=== PATIENT | male | born 1975 | race Caucasian/White ===

== ENCOUNTER 2019-08-11 22:50 | Inpatient (IN) ==
[2019-08-11] MEDS ORDERED: CARAFATE LIQUID PO ONE (23:15)
[2019-08-11 23:43] LABS: BASO# 0.05 X1000 (0.0-0.2); BASO% 0.5 % (0.0-0.8); HEMATOCRIT 41.1 % (42.0-52.0); HEMOGLOBIN 13.8 g/dL (14.0-18.0); IMM GRAN# 0.02 X1000 (0.0-0.04); IMM GRAN% 0.2 % (0.0-0.5); LYMPH# 3.21 X1000 (1.2-3.4); LYMPH% 32.7 % (20.5-51.1); MCH 28.8 PG (27-31); MCHC 33.6 g/dL (33-37); MCV 85.8 FL (81-99); MONO# 0.72 X1000 (0.11-0.59); MONO% 7.3 % (1.7-9.3); MPV 9.7 FL (7.4-10.4); NEUT# 5.63 X1000 (1.4-6.5); NEUT% 57.3 % (42.2-75.2); PLT 193 X1000 (130-400); RBC 4.79 XMIL (4.7-6.1); RDW 13.3 % (11.5-14.5); WBC 9.83 X1000 (4.8-10.8)
[2019-08-12 00:01] LABS: AGAP 11; ALBUMIN 4.5 g/dL (3.5-5.0); ALKALINE PHOSPHATASE 76 U/L (32-122); BUN 13 mg/dL (8-22); CALCIUM 9.6 mg/dL (8.8-10.2); CHLORIDE 103 mmol/L (98-107); COSMO 277; ESTIMATED GFR > 60; GLUCOSE 116 mg/dL (70-104); GOT 14 U/L (10-34); GPT 14 U/L (10-44); LIPASE 164 U/L (13-60); POTASSIUM 3.9 mmol/L (3.5-5.1); SODIUM 138 mmol/L (136-145); TCO2 24 mmol/L (25-35); TOTAL PROTEIN 7.3 g/dL (6.3-8.3)
[2019-08-12] MEDS ORDERED: G.I. COCKTAIL PO ONE (00:20)
[2019-08-12] MEDS ORDERED: NS 1,000 ML IV ONE ×2 (00:20→02:27)
[2019-08-12] MEDS ORDERED: ZOFRAN IV ONE ×2 (00:20→01:13)
[2019-08-12 00:40] LABS: OCCULT BLOOD 1 NEGATIVE (NEGATIVE)
[2019-08-12 00:52] LABS: BILIRUBIN URINE NEGATIVE (NEGATIVE); BLOOD URINE 1+ (NEGATIVE); CLARITY CLEAR (CLEAR); COLOR YELLOW; GLUCOSE URINE NEGATIVE (NEGATIVE); KETONE URINE NEGATIVE (NEGATIVE); LEUKOCYTES URINE NEGATIVE (NEGATIVE); NITRITE URINE NEGATIVE (NEGATIVE); PROTEIN URINE NEGATIVE (NEGATIVE); URINE SOURCE CLEAN CATCH; UROBILINOGEN URINE NORMAL
[2019-08-12 00:54] LABS: URINE BACTERIA 1+ /HFP; URINE EPITHELIAL CELLS <10 /HPF (<10); URINE RBC <10 /HPF (<10); URINE WBC <10 /HPF (<10)
[2019-08-12 00:59] LABS: UR AMPHETAMINES QUAL NONE DETECTED (NONE DETECT); UR BARBITUATES QUAL NONE DETECTED (NONE DETECT); UR BENZODIAZEPIN QUAL NONE DETECTED (NONE DETECT); UR CANNABINOIDS QUAL PRESUMPTIVE POSITIVE (NONE DETECT); UR COCAINE QUAL NONE DETECTED (NONE DETECT); UR METHADONE QUAL NONE DETECTED (NONE DETECT); UR METHAMPHETAMINE QUAL NONE DETECTED (NONE DETECT); UR OPIATES QUAL NONE DETECTED (NONE DETECT); UR OXYCODONE QUAL NONE DETECTED (NONE DETECT); UR PCP QUAL NONE DETECTED (NONE DETECT); UR PROPOXYPHENE QUAL NONE DETECTED (NONE DETECT); UR TCA QUAL NONE DETECTED (NONE DETECT)
[2019-08-12] MEDS ORDERED: DILAUDID IV ONE (01:13)
--- NOTE | 2019-08-12 02:20 | PROVIDER DOCUMENTATION ---
This chart was entered by Bharti Mejia Scribe, acting as scribe for Truong Carbajal MD. HPI-Abdominal Pain/GI Problem - General Chief Complaint: Abdominal Pain Stated Complaint: RETURN/RETREAT Time Seen by Provider: 08/11/19 23:14 Source: patient, family Allergies/Adverse Reactions: Patient Allergies Allergy/AdvReac Type Severity Reaction Status Date / Time Penicillins Allergy RASH Verified 08/11/19 22:59 Home Medications: Home Medication List Medication Instructions Recorded Confirmed Last Taken Type Famotidine [Pepcid] 20 mg PO BID #60 tab 08/10/19 08/11/19 Unknown Rx Pantoprazole [Protonix] 40 mg PO DAILY@0700 #30 tab 08/10/19 08/11/19 Unknown Rx - History of Present Illness-ABD Nature of Presenting Problems: Pt is 43/M presenting to ED w/ ABD pain that is primarily R sided and has been present for the last 3 weeks. Pt has been to the ED several times here as well as [facility]. He was dx w/ ulcers. Pt sts that he is not getting any better and that he is now n/v. Pt has appt w/ GI on 08/19, but is having a hard time waiting. Abdominal Pain Onset Location: reports: RUQ, epigastric Pain Radiation: reports: no radiation Quality of Pain: reports: aching Severity in ED: reports: moderate Onset/Duration: reports: other (3 weeks) Timing: reports: getting worse Activities at Onset: reports: none Exposure to sick contacts?: No Modifying Factors: improves with: nothing Associated Symptoms: reports: constipation (pt sts that he usually has more BM, did go yesterday, but it has not been normal.), nausea, vomiting Last BM: last night Dark Stools Present?: reports: none noticed Rectal Bleeding: reports: none Rectal Pain: reports: none Bruising or Bleeding Gums?: No Similar Symptoms Previously?: No Recently seen or treated by another doctor?: No Review of Systems - Adult - REVIEW OF SYSTEMS - ADULT Constitutional: reports: no symptoms reported Eyes: reports: no symptoms reported Ears, Nose, Mouth & Throat: reports: no symptoms reported Cardiovascular: denies: no symptoms reported, chest pain Respiratory: reports: no symptoms reported. denies: cough, shortness of breath, wheezing Gastrointestinal: reports: abdominal pain, constipation, nausea, vomiting. denies: diarrhea Genitourinary: reports: no symptoms reported Musculoskeletal: reports: no symptoms reported. denies: back pain Integumentary: reports: no symptoms reported Neurological: reports: no symptoms reported. denies: dizziness/vertigo, headache/migraines Psychiatric: reports: no symptoms reported Endocrine: reports: no symptoms reported Hematologic/Lymphatic: reports: no symptoms reported Allergic/Immunologic: reports: no symptoms reported All Other Systems: Reviewed and Negative Past History - Adult - PAST MEDICAL HISTORY-ADULT Review of Records: reports: Old Records Reviewed, Nursing Assessment Review, Medications Reviewed, Social history reviewed & non-contributory. Major Childhood Illnesses: reports: denies history Cardiovascular: reports: HTN Respiratory: reports: denies history Gastrointestinal: reports: GERD Obstetrical/Gynecological: reports: denies history Genitourinary: reports: denies history Musculoskeletal: reports: denies history Neurological: reports: denies history Endocrine/Immune: reports: denies history Other Conditions: reports: denies history - PRIOR SURGERIES/PROCEDURES Surgical/Procedure History: reports: none - IMMUNIZATION STATUS Childhood Immunizations: See Nurse Assessment Flu Vaccine: See Nurse Assessment - FAMILY HISTORY Family History: CAD under 55yo - SOCIAL HISTORY Smoking: cigarettes, greater than 1 pack/day Provider spent 3-5 mins advising pt. on dangers of tobacco.: Discussed manners to quit use, and f/u contacts for add'l counseling. Substance Use: none/never Alcohol Use Frequency: never Living Situation: family Physical Exam-General - PHYSICAL EXAM-ADULT Initial Vital Signs Reviewed: Yes - CONSTITUTIONAL General Appearance: appears well, alert, moderate distress - EYES Eyes: PERRL/EOMI, pink conjunctivae - HEAD, EARS, NOSE, MOUTH & THROAT HENMT: moist mucous membranes - NECK Neck: non-tender, full range of motion, supple, normal inspection - RESPIRATORY Respiratory: lungs clear - CARDIOVASCULAR Cardiovascular: bradycardia (59) - GASTROINTESTINAL (ABDOMEN) Abdominal Exam: soft, tenderness (RUQ and epigastric tenderness w/ palpation) - MUSCULOSKELETAL Back Exam: normal inspection Extremity: normal range of motion, non-tender, normal gait, normal inspection - SKIN Integumentary: normal color, warm/dry - NEUROLOGIC Neurologic: grossly normal - PSYCHIATRIC Psych/Mental Status: normal mood/affect, normal thought content, normal thought process, oriented x 3 Progress - PLAN OF CARE/RESULTS Progress/Plan/Lab Results: Vital Signs - 8 hr 08/11/19 22:55 Temperature 97.4 F L Pulse Rate 59 L Respiratory Rate 20 Blood Pressure 154/98 O2 Sat by Pulse Oximetry 100 Laboratory Results - last 24 hr 08/11/19 23:26 WBC 9.83 RBC 4.79 Hgb 13.8 L Hct 41.1 L MCV 85.8 MCH 28.8 MCHC 33.6 RDW Std Deviation 13.3 Plt Count 193 MPV 9.7 Immature Gran % (Auto) 0.2 Neut % (Auto) 57.3 Lymph % (Auto) 32.7 [place] % (Auto) 7.3 Eos % (Auto) 2.0 Baso % (Auto) 0.5 Immature Gran # (Auto) 0.02 Neut # (Auto) 5.63 Lymph # (Auto) 3.21 [place] # (Auto) 0.72 H Eos # (Auto) 0.20 Baso # (Auto) 0.05 Orders Category Date Time Status AMYLASE [CHEM] Stat Lab 08/11/19 23:26 Received CBC WITH ELECTRONIC DIFF [HEME] Stat Lab 08/11/19 23:26 Completed COMPREHENSIVE METABOLIC PANEL [CHEM] Stat Lab 08/11/19 23:26 Received LIPASE [CHEM] Stat Lab 08/11/19 23:26 Received OCCULT BLOOD SCREEN STOOL PL Stat Lab 08/11/19 23:[address] W/POSS RFLX CULT [URINALYSIS] Stat Lab 08/11/19 23:14 Uncollected Sucralfate [Carafate Liquid] Med 08/11/19 23:15 Discontinued 1 gm PO NOW ONE Result Diagrams: 08/11/19 23:26 08/11/19 23:26 - CONSULTS/PCP/HOSPITALIST Notification #1 *Consult/PCP/Hospitalist*: Dr Bahena Time Discussed: 02:01 Consult Disposition: Admit Departure - Departure Date of Disposition Decision: 08/12/19 Time of Disposition Decision: 02:19 DIAGNOSIS: Nausea & vomiting, Elevated lipase, Abdominal pain, Substance abuse Disposition: ADMITTED INPATIENT 09 Certified Medical Emergency: Emergent Condition: Fair Referrals and Follow-Ups: None,PCP [Primary Care Provider] - - Critical Care Note This patient required my direct & personal management of CC.: No Attestation - Physician/ SAM Attestation Patient care was provided by Advanced Practice Provider:: No The physician spent face to face time with patient:: Yes Advanced Practice Provider documentation review:: Supervising physician onsite and consulted in the evaluation and care of this patient. The physician did have a face to face encounter with the patient. This chart was documented by the indicated scribe, (Bharti Mejia, Scribe) and accurately reflects the services I performed and decisions made by me, Truong Carbajal MD, as attested by the provider's signature.
[2019-08-12] MEDS: DEMEROL IV PRN ×5 (04:12→19:13)
[2019-08-12] MEDS ORDERED: DEMEROL IV PRN (05:00)
--- NOTE | 2019-08-12 09:01 | Diag Imaging Result Doc PS360 ---
US GB < RUQ (LIMITED) - 08/12/2019 INDICATION: RUQ abdo pain TECHNIQUE: Lacy scale, color Doppler, and duplex evaluation of the abdomen was performed. Standard protocol. COMPARISON: None FINDINGS: The liver appears hyperechoic suggesting diffuse fatty liver infiltration. No focal masses are appreciated. The IVC and aorta appear normal. The pancreas is unremarkable. The gallbladder is free of stones and sludge has a normal caliber wall. The common bile duct measures 4 mm. The portal vein is patent with hepatopetal flow. The right kidney appears normal. There is no hydronephrosis. IMPRESSION: Diffuse fatty liver infiltration. Otherwise normal abdominal ultrasound. Electronically signed by Debbie Tavares 08/12/2019 8:59 AM
[2019-08-12 09:33] LABS: BASO# 0.04 X1000 (0.0-0.2); BASO% 0.5 % (0.0-0.8); EOS# 0.17 X1000 (0.0-0.7); EOS% 1.9 % (0.0-10.0); HEMATOCRIT 42.3 % (42.0-52.0); HEMOGLOBIN 14.1 g/dL (14.0-18.0); IMM GRAN# 0.02 X1000 (0.0-0.04); IMM GRAN% 0.2 % (0.0-0.5); LYMPH# 3.09 X1000 (1.2-3.4); LYMPH% 35.1 % (20.5-51.1); MCH 28.9 PG (27-31); MCHC 33.3 g/dL (33-37); MCV 86.7 FL (81-99); MONO# 0.67 X1000 (0.11-0.59); MONO% 7.6 % (1.7-9.3); MPV 9.8 FL (7.4-10.4); NEUT# 4.81 X1000 (1.4-6.5); NEUT% 54.7 % (42.2-75.2); PLT 200 X1000 (130-400); RBC 4.88 XMIL (4.7-6.1); RDW 13.4 % (11.5-14.5)
[2019-08-12 09:59] LABS: AGAP 9; ALBUMIN 4.6 g/dL (3.5-5.0); ALKALINE PHOSPHATASE 84 U/L (32-122); AMYLASE 106 U/L (20-200); BUN 9 mg/dL (8-22); CALCIUM 9.7 mg/dL (8.8-10.2); CHLORIDE 108 mmol/L (98-107); COSMO 281; ESTIMATED GFR > 60; GLUCOSE 92 mg/dL (70-104); GOT 13 U/L (10-34); GPT 14 U/L (10-44); LIPASE 114 U/L (13-60); POTASSIUM 4.2 mmol/L (3.5-5.1); SODIUM 142 mmol/L (136-145); TCO2 25 mmol/L (25-35); TOTAL PROTEIN 7.5 g/dL (6.3-8.3)
[2019-08-12] MEDS: PROTONIX IV SCH ×3 (11:25→23:03)
[2019-08-12] MEDS: SODIUM CHLORIDE 0.9% INJ SCH (11:25)
[2019-08-12] MEDS ORDERED: DULCOLAX PR ONE (14:09)
[2019-08-12] MEDS: CARAFATE LIQUID PO SCH ×2 (14:16→20:43)
--- NOTE | 2019-08-12 15:47 | HISTORY AND PHYSICAL ---
CHIEF COMPLAINT: Abdominal pain, nausea and vomiting. HISTORY OF PRESENT ILLNESS: Mr. Bradly Adamson is a 43-year-old male with a medical history of GERD that he takes Zantac for at home. He reports that over the last 2 and half weeks, he had one black tarry stool. Otherwise, he has had issues with constipation, becoming very nauseous with vomiting yellow emesis. He states that he took a dose of Metamucil last week, and had a very normal large bowel movement and felt much better, but then started developing bloatedness again. Originally, pain was left lower quadrant and then radiated to the right, and then right upper quadrant. During evaluation, right upper quadrant abdominal pain was initiated with palpation. Imaging reviewed. It does show that the CT and the ultrasound shows a contracted gallbladder. He also has fatty liver, but otherwise no acute findings. He is going to go for an MRI of the abdomen. It is possible that he could have gastroparesis as he claims to feel like he just retains food in his upper abdomen, and complains of feeling like he has a slow digestion. Prior to the last 2-1/2 weeks, he was having normal bowel movements around 2 a day. Other symptoms is feeling like there is gassiness and bloatedness. He has been to the ER several times for these complaints with nothing found. Sometimes, the vomiting is projectile, and he is supposed to see Dr. Pimentel next week for further evaluation of his abdomen. PAST MEDICAL HISTORY: GERD. PAST SURGICAL HISTORY: Teeth extraction. SOCIAL HISTORY: to his of 25 years. They have 1 son. He is a paratransit driver. He smokes a pack per day for at least 15 years. No alcohol. Marijuana once a day. FAMILY HISTORY: Father had MS and CVA. at 56 of an [place]. Mother had skin cancer. ALLERGIES: Penicillin. HOME MEDICATIONS: 1. Zantac 150 mg as needed. 2. Pepcid 20 mg p.o. twice daily. 3. Protonix 40 mg p.o. daily. Those were just initiated a few days ago. REVIEW OF SYSTEMS: Fourteen point review of systems are complete, and all were negative for those mentioned above in HPI. PHYSICAL EXAMINATION: VITAL SIGNS: Temperature 97.2 degrees, heart rate 46, respiratory rate 18, blood pressure 154/88, and O2 saturation 100% on room air. GENERAL: The patient is a 43-year-old male. He is in no acute distress. He is able to answer questions appropriately. HEENT: Atraumatic, normocephalic. Pupils equal, round, reactive to light. Extraocular movements intact. Mucous membranes are dry. NECK: Trachea midline. CARDIOVASCULAR: S1, S2. Bradycardic rate and rhythm. No rubs, gallops, murmurs. No lower extremity edema. +2 dorsalis and radial pulses. Negative JVD or carotid bruits. PULMONARY: Clear to auscultation. Bilateral breath sounds. No accessory muscle use or work of breathing noted. GI: Soft. Tender in the right upper quadrant with abdominal palpation. Positive bowel sounds x4 but hypoactive. EXTREMITIES: Moves all extremities equally. Full range of motion. NEUROLOGIC: A and O x3. Follows commands. Sensory is intact. SKIN: Warm, dry, intact. LABORATORY DATA: White blood cells 8000, hemoglobin 14, hematocrit 42, and platelet count 200,000. Sodium 142, potassium 4.2, BUN 9, creatinine 1.0, glucose is 92, calcium 9.7, magnesium 2.0. Bilirubin 0.30, AST 13, ALT 14, amylase 106, lipase 114, lactate 1.1. Urinalysis 1+ blood, 1+ bacteria. Otherwise negative. Stool for occult blood negative. Urine drug screen positive for cannabinoids. IMAGING: Abdominal ultrasound fatty liver. ASSESSMENT AND PLAN: 1. Abdominal pain with constipation, vomiting and nausea. Antiemetics as needed. We will start with a bisacodyl suppository x1. Start him on MiraLAX twice a day. He does have somewhat of a little bit of elevation in his lipase. CT and ultrasound does not really show anything with the gallbladder or the pancreas. It does show some fatty liver. Carafate 1 g every 6 hours 2. Possible gastroparesis, way he describes it as slow. He could have a gastric emptying study at some point. 3. Reported contracted gallbladder, could be possible that his gallbladder is causing some of these symptoms though he might benefit from a HIDA scan. 4. GERD. Continue with the proton pump inhibitor. Protonix IV twice a day. 5. Suspicious that he has got just straight up constipation. Again, he is going to be given some bisacodyl and MiraLAX. 6. Tobacco abuse. Cessation discussed. 7. Deep venous thrombosis prophylaxis. SCD's. Dictated by JANICE Christopher for Jose J Madera MD Addendum: Patient seen and examined by myself. Agree with JANICE note. It reflects my assessment and plan. Patient is being admitted to hospital for recurrent abdominal pain. Will order MRI of abdomen and HIDA scan. Will provide pain medications and monitor patient closely. cc: JANICE Christopher MD [facility]
--- NOTE | 2019-08-12 17:13 | Diag Imaging Result Doc PS360 ---
EXAM: MRI ABDOMEN W/WO CONTRAST HISTORY: abdomen pain TECHNIQUE: Routine dynamic pre and post contrasted CT of abdomen with and without fat saturation techniques. COMPARISON: CT abdomen and pelvis 08/10/2019 FINDINGS: The liver appears normal in size and signal intensity. No significant signal dropout on out of phase imaging is identified to suggest diffuse hepatic steatosis. Pancreas, kidneys, and adrenal glands appear normal. Aorta is of normal caliber. No adenopathy is appreciated. There are no abnormal regions of contrast enhancement. IMPRESSION: Negative study. No abnormalities are appreciated. Electronically signed by Debbie Tavares 08/12/2019 5:11 PM
[2019-08-12] MEDS: MIRALAX PO SCH (20:48)
[2019-08-13] MEDS: CARAFATE LIQUID PO SCH ×5 (04:16→20:35)
[2019-08-13 06:05] LABS: BASO# 0.04 X1000 (0.0-0.2); BASO% 0.5 % (0.0-0.8); EOS# 0.16 X1000 (0.0-0.7); EOS% 2.1 % (0.0-10.0); HEMATOCRIT 45.6 % (42.0-52.0); HEMOGLOBIN 15.1 g/dL (14.0-18.0); IMM GRAN# 0.02 X1000 (0.0-0.04); IMM GRAN% 0.3 % (0.0-0.5); LYMPH# 2.63 X1000 (1.2-3.4); LYMPH% 34.7 % (20.5-51.1); MCH 28.5 PG (27-31); MCHC 33.1 g/dL (33-37); MONO# 0.63 X1000 (0.11-0.59); MONO% 8.3 % (1.7-9.3); NEUT% 54.1 % (42.2-75.2); PLT 201 X1000 (130-400); RDW 13.5 % (11.5-14.5); WBC 7.58 X1000 (4.8-10.8)
[2019-08-13 06:25] LABS: HEMOGLOBIN A1C 5.1 % (4.8-6.0)
[2019-08-13 06:33] LABS: AGAP 11; ALBUMIN 4.6 g/dL (3.5-5.0); ALKALINE PHOSPHATASE 92 U/L (32-122); BUN 7 mg/dL (8-22); CALCIUM 10.2 mg/dL (8.8-10.2); CHLORIDE 104 mmol/L (98-107); COSMO 277; CREATININE 1.1 mg/dL (0.7-1.2); ESTIMATED GFR > 60; GLUCOSE 96 mg/dL (70-104); GOT 13 U/L (10-34); GPT 14 U/L (10-44); POTASSIUM 4.7 mmol/L (3.5-5.1); SODIUM 140 mmol/L (136-145); TCO2 25 mmol/L (25-35); TOTAL PROTEIN 7.6 g/dL (6.3-8.3)
--- NOTE | 2019-08-13 09:57 | PROGRESS NOTE ---
DATE: 08/13/2019 SUBJECTIVE: Patient denies having any acute complaint this morning. He states that the abdominal pain has completely resolved since last night. OBJECTIVE: Vital Signs: Temperature 97.8 degrees, pulse 65 per minute, respiratory rate 18 per minute, blood pressure 142/93, pulse oximetry 100% on room air. General: Patient is alert and oriented x3. He does not appear to be in any acute distress. Cardiovascular System: First and second heart sounds are audible without any murmurs or gallops. Respiratory System: No respiratory distress noted. Bilateral lung air entry is good without any rales or rhonchi. Gastrointestinal System: Abdomen is soft and nontender. No guarding or rigidity are present. There is no tenderness or rebound tenderness. There are no viscera are palpable, and normal bowel sounds are present. Musculoskeletal System: No deformities are present. DIAGNOSTIC DATA: CBC and comprehensive metabolic panel are nondiagnostic this morning. IMPRESSION: 1. This is a 43-year-old gentleman, who was admitted to the hospital with abdominal pain, and who has history of significant acid reflux symptoms for which he was taking ranitidine, but a few weeks ago ranitidine was taken off the shelf, and because of that, he was not able to take ranitidine. Since then, he has been having significant abdominal pain. 2. Nausea, vomiting and constipation, which all have now resolved. PLAN: The patient seems to be having abdominal pain related to acid reflux, but he is already scheduled to have a HIDA scan this morning, which we will go ahead and get it done. He can probably be discharged home if HIDA scan is negative. In that case, he will need to follow up with PCP and get him scheduled for EGD as outpatient for further evaluation. cc: Daina De Oliveira MD
--- NOTE | 2019-08-13 11:09 | Diag Imaging Result Doc PS360 ---
EXAM: HIDA SCAN W/ EJECTION FRACTION HISTORY: abdominal pain, contracted gallblader TECHNIQUE: Nuclear medicine HIDA scan with gallbladder ejection fraction COMPARISON: None. FINDINGS: 4.7 mCi Choletec administered. There is normal uptake in the liver. Normal emptying into the gallbladder and small bowel. Ensure was given to determine the gallbladder ejection fraction. No appreciable emptying at 60 minutes. IMPRESSION: Abnormal exam with poor emptying from the gallbladder. Electronically signed by Maximilian Osborne 08/13/2019 11:07 AM
[2019-08-13] MEDS: MIRALAX PO SCH ×2 (11:39→20:35)
[2019-08-13] MEDS: PROTONIX IV SCH ×2 (12:11→20:34)
[2019-08-13] MEDS: SODIUM CHLORIDE 0.9% INJ SCH (12:11)
[2019-08-13] MEDS: DEMEROL IV PRN ×2 (17:59→21:23)
[2019-08-13] MEDS: NICODERM PATCH TD SCH (18:25)
[2019-08-13] MEDS: ZOFRAN ODT PO PRN (21:23)
[2019-08-14] MEDS: CARAFATE LIQUID PO SCH ×4 (01:52→22:12)
[2019-08-14] MEDS: DEMEROL IV PRN ×6 (01:52→20:26)
[2019-08-14] MEDS: PROTONIX IV SCH ×3 (01:53→22:12)
[2019-08-14] MEDS: ZOFRAN ODT PO PRN ×2 (05:46→12:41)
[2019-08-14 06:26] LABS: BASO# 0.03 X1000 (0.0-0.2); BASO% 0.3 % (0.0-0.8); EOS# 0.19 X1000 (0.0-0.7); EOS% 2.1 % (0.0-10.0); HEMATOCRIT 45.1 % (42.0-52.0); IMM GRAN# 0.02 X1000 (0.0-0.04); IMM GRAN% 0.2 % (0.0-0.5); LYMPH# 2.43 X1000 (1.2-3.4); LYMPH% 27.5 % (20.5-51.1); MCH 28.4 PG (27-31); MCHC 33.3 g/dL (33-37); MCV 85.4 FL (81-99); MONO# 0.89 X1000 (0.11-0.59); MONO% 10.1 % (1.7-9.3); MPV 10.2 FL (7.4-10.4); NEUT# 5.29 X1000 (1.4-6.5); NEUT% 59.8 % (42.2-75.2); PLT 211 X1000 (130-400); RBC 5.28 XMIL (4.7-6.1); RDW 13.3 % (11.5-14.5); WBC 8.85 X1000 (4.8-10.8)
[2019-08-14 06:53] LABS: AGAP 12; ALBUMIN 4.5 g/dL (3.5-5.0); ALKALINE PHOSPHATASE 88 U/L (32-122); BUN 12 mg/dL (8-22); CALCIUM 10.1 mg/dL (8.8-10.2); CHLORIDE 102 mmol/L (98-107); COSMO 277; ESTIMATED GFR > 60; GLUCOSE 101 mg/dL (70-104); GOT 15 U/L (10-34); GPT 15 U/L (10-44); MAGNESIUM 1.9 mg/dL (1.5-2.7); POTASSIUM 4.6 mmol/L (3.5-5.1); SODIUM 139 mmol/L (136-145); TCO2 26 mmol/L (25-35); TOTAL PROTEIN 7.8 g/dL (6.3-8.3)
[2019-08-14] MEDS: SODIUM CHLORIDE 0.9% INJ SCH (09:03)
[2019-08-14] MEDS: MIRALAX PO SCH (09:04)
[2019-08-14] MEDS: NICODERM PATCH TD SCH (09:05)
--- NOTE | 2019-08-14 13:09 | PROGRESS NOTE ---
DATE: 08/14/2019 SUBJECTIVE: The patient reports that he still is complaining of abdominal pain that gets worse when he eats. Denies any fever or chills. OBJECTIVE: Vital Signs: Temperature 97.6, heart rate 65, respiratory rate 16, blood pressure 146/102, O2 saturation 100% on room air. General Examination: This is a 43-year-old, male, lying in bed, in no acute distress. Cardiovascular Examination: S1 and S2 heard. No murmurs, gallops, or rubs. Regular rate and rhythm. Respiratory Examination: Clear bilaterally to auscultation. No work of breathing or using accessory muscles. Abdomen: Soft, nontender to palpation. Bowel sounds present. No organomegaly. No signs of peritoneal irritation. There is no tenderness or rebound noted. Extremities: No clubbing, cyanosis, or edema. Peripheral pulses present in both legs. Neurological Examination: The patient is alert and oriented x3. Moves 4 extremities. Laboratory Data: Unremarkable. ASSESSMENT: 1. Abdominal pain. 2. Gastroesophageal reflux disease. 3. Abnormal, poor emptying of gallbladder. PLAN: The patient basically came to the emergency department complaining of abdominal pain. He has had, so far, two CAT scans here in the emergency room at [facility] and in [place] and one more apparently at [facility]. We have done an MRI of the abdomen which did not show any abnormality. The patient continues to report abdominal pain. The HIDA scan returned abnormal. We have consulted general surgery to see if this patient will require any surgical approach or not. If not, I think we will transfer this patient to [facility] for a gastrointestinal evaluation tomorrow. We will continue to monitor this patient closely. cc: Jose J Madera MD
--- NOTE | 2019-08-14 18:03 | GENERAL SURGERY CONSULTATION ---
DATE: 08/14/2019 HISTORY: 43-year-old male with a several week history of recurrent and progressive abdominal pain with associated nausea and some vomiting and bloating. Symptoms are worse after eating. There are no relieving factors except time. They wax and wane in intensity but overall progressing in the severity over the last few weeks. He reports some chills but no fever. He also report some diarrhea and constipation. PAST MEDICAL HISTORY: Gastroesophageal reflux disease. PAST SURGICAL HISTORY: None. HOME MEDICATIONS: Currently none but he used to take Zantac. SOCIAL HISTORY: He smokes about 1 pack per day for several years. No alcohol. He also uses marijuana daily. He drives a truck. He is and as 1 child. FAMILY HISTORY: His mother had her gallbladder taken out. There is also history of stroke and multiple sclerosis as well as [place]. ALLERGIES: Penicillin. REVIEW OF SYSTEMS: Ten systems reviewed and negative except as noted above. PHYSICAL EXAMINATION: Vital Signs: Temperature 97.7 degrees, pulse 72, respirations 16, blood pressure 162/105, O2 saturation 100%. General: Well-developed male in no distress who looks stated age. HEENT: Normocephalic, atraumatic. Extraocular muscles intact. Pupils equal, round, reactive to light. Sclerae anicteric. Moist mucous membranes. Hearing grossly normal. No oral lesions. Neck: Supple. No thyromegaly. CV: Regular rate and rhythm. Respiratory: Bilateral breath sounds. No work of breathing. GI: Soft, nondistended. No organomegaly or mass. No hernias. He is tender in the epigastric right upper quadrant but without rebound or guarding. Extremities: No clubbing, cyanosis, or edema. Skin: Warm and dry. No rash. Musculoskeletal: Moves all extremities equally and well. LABORATORY: CBC and complete metabolic profile reviewed and unremarkable. He did have a mildly elevated lipase at 164 on admission. It then went down to 114 the next day. Urinalysis negative. Stool occult blood is negative. Urine drug screen is negative except for cannabinoids. IMAGING: Abdominal ultrasound shows diffuse fatty liver infiltration but was otherwise normal. Abdominal MRI was negative. HIDA scan showed no appreciable emptying of the gallbladder or a 0% ejection fraction after 1 hour. ASSESSMENT/PLAN: 43-year-old male with severe biliary dyskinesia. We are planning laparoscopic cholecystectomy tomorrow. I went over the risks and benefits with him including bleeding, infection, injury to surrounding organs such as the intestines or bile duct, incisional hernia, and other imponderables. He understands and agrees to proceed. cc: Kyle Courtney MD
[2019-08-14] MEDS: MORPHINE IV PRN (23:14)
[2019-08-15] MEDS: MORPHINE IV PRN ×4 (00:52→06:34)
[2019-08-15] MEDS: CARAFATE LIQUID PO SCH (01:00)
[2019-08-15] MEDS: ZOFRAN ODT PO PRN ×3 (02:59→14:45)
[2019-08-15 07:00] LABS: BASO# 0.04 X1000 (0.0-0.2); BASO% 0.5 % (0.0-0.8); EOS# 0.18 X1000 (0.0-0.7); EOS% 2.4 % (0.0-10.0); HEMATOCRIT 46.2 % (42.0-52.0); HEMOGLOBIN 15.6 g/dL (14.0-18.0); IMM GRAN# 0.02 X1000 (0.0-0.04); IMM GRAN% 0.3 % (0.0-0.5); LYMPH# 3.06 X1000 (1.2-3.4); LYMPH% 40.2 % (20.5-51.1); MCH 29.2 PG (27-31); MCHC 33.8 g/dL (33-37); MCV 86.4 FL (81-99); MONO# 0.67 X1000 (0.11-0.59); MONO% 8.8 % (1.7-9.3); MPV 10.2 FL (7.4-10.4); NEUT# 3.64 X1000 (1.4-6.5); NEUT% 47.8 % (42.2-75.2); PLT 187 X1000 (130-400); RBC 5.35 XMIL (4.7-6.1); RDW 13.4 % (11.5-14.5); WBC 7.61 X1000 (4.8-10.8)
[2019-08-15 07:30] LABS: AGAP 13; ALB/GLOB RATIO 1.4; ALBUMIN 4.6 g/dL (3.5-5.0); ALKALINE PHOSPHATASE 93 U/L (32-122); BUN 12 mg/dL (8-22); CALCIUM 8.8 mg/dL (8.8-10.2); CHLORIDE 100 mmol/L (98-107); COSMO 277; ESTIMATED GFR > 60; GLUCOSE 95 mg/dL (70-104); GOT 16 U/L (10-34); GPT 18 U/L (10-44); POTASSIUM 3.9 mmol/L (3.5-5.1); SODIUM 139 mmol/L (136-145); TCO2 26 mmol/L (25-35); TOTAL BILIRUBIN 0.46 mg/dL (0.20-1.00); TOTAL PROTEIN 7.9 g/dL (6.3-8.3)
[2019-08-15] MEDS ORDERED: SODIUM CHLORIDE 0.9% ONE (07:55)
[2019-08-15] MEDS ORDERED: SENSORCAINE-MPF 0.5%/EPI 1:200,000 ONE (07:55)
[2019-08-15] MEDS ORDERED: LR 1,000 ML ONE (07:56)
[2019-08-15] MEDS ORDERED: XYLOCAINE-MPF 2% ONE ×2 (07:59→09:33)
[2019-08-15] MEDS ORDERED: DECADRON ONE (07:59)
[2019-08-15] MEDS ORDERED: ROBINUL ONE ×2 (07:59→08:08)
[2019-08-15] MEDS ORDERED: ZOFRAN ONE (07:59)
[2019-08-15] MEDS ORDERED: FENTANYL ONE (08:00)
[2019-08-15] MEDS ORDERED: DIPRIVAN 1% ONE (08:00)
[2019-08-15] MEDS ORDERED: VERSED ONE ×2 (08:02→08:25)
[2019-08-15] MEDS ORDERED: QUELICIN (DOSE) ONE (08:05)
[2019-08-15] MEDS ORDERED: ZEMURON ONE (08:08)
[2019-08-15] MEDS ORDERED: LEVAQUIN 500 MG/D5W 500 MG/100 ML IVPB ONE (08:34)
[2019-08-15] MEDS ORDERED: LOPRESSOR ONE (08:57)
[2019-08-15] MEDS ORDERED: TORADOL ONE (09:12)
[2019-08-15] MEDS ORDERED: NEOSTIGMINE ONE (09:22)
[2019-08-15] MEDS: DILAUDID ONE ×2 (09:54→09:59)
--- NOTE | 2019-08-15 09:54 | PROGRESS NOTE ---
DATE: 08/15/2019 The patient was admitted on 08/12/2019 with abdominal pain, nausea, and vomiting. This is a 43- year-old with a past medical history of gastroesophageal reflux disease. Takes Zantac at home. Reports that over the last two and a half weeks, had black tarry stool. Otherwise, he has had issues with constipation, becoming easily nauseated, vomiting, yellow emesis. He says that he took a dose of Metamucil last week and had very normal large bowel movement, felt much better. Then started developing a bloating feeling, then gas and distention. Originally, pain was in the left lower quadrant, then radiated to the right, then right upper quadrant. Had a CT scan done and ultrasound showed a contracted gallbladder. HIDA scan with dysfunctional ejection fraction, I think was 1%. Headed for surgery this morning. OBJECTIVE: Temperature 97.8 degrees, pulse 80, respirations 20, blood pressure 140/101. Pupils are equal and round. Lungs are clear in all lung schumacher. Cardiovascular Examination: Regular rhythm and rate without murmur or S3. Abdomen is soft. He is tender in the right upper quadrant. ASSESSMENT AND PLAN: Mild cholecystitis, dysfunctional gallbladder, for surgery this morning. Laparoscopic cholecystectomy was planned. LABORATORY DATA: White count 7610, hematocrit 46, platelet count is 187,000. Sodium 139, potassium 3.9, chloride 100, BUN 12, creatinine 1.0. cc: Jose Addison MD
[2019-08-15] MEDS ORDERED: DILAUDID ONE (10:07)
[2019-08-15] MEDS ORDERED: NORCO-10 PO PRN (10:36)
[2019-08-15] MEDS: PROTONIX IV SCH (12:35)
[2019-08-15] MEDS: NICODERM PATCH TD SCH (12:36)
--- NOTE | 2019-08-15 12:48 | OPERATIVE NOTE ---
PROCEDURE DATE: 08/15/2019 PREOPERATIVE DIAGNOSIS: Biliary dyskinesia. POSTOPERATIVE DIAGNOSIS: Biliary dyskinesia. PROCEDURE: Laparoscopic cholecystectomy with operative cholangiogram. SURGEON: Kyle Courtney MD. ANESTHESIA: General. ESTIMATED BLOOD LOSS: 20 mL. COMPLICATIONS: None apparent. SPECIMENS: Gallbladder. FINDINGS: The gallbladder was somewhat distended, however, no stones were appreciated. There were no filling defects in the biliary system. There was flow of contrast seen in the duodenum. TECHNIQUE: The patient was brought to the operating room and placed supine on the table. General anesthesia was induced. He was prepped and draped in usual sterile fashion. 0.25% Marcaine with epinephrine was used to anesthetize our incisions. An 11 mm incision was made just above the umbilicus. The fascia was exposed and incised sharply. Entry into the peritoneal cavity was obtained under direct vision with the OptiPriceBaba device. Pneumoperitoneum was established. The camera was inserted. There was no evidence of injury to underlying structures. He was placed in reverse Trendelenburg and left rotation. Three 5 mm incision ports were placed across the epigastric and right upper quadrant below the costal margin per usual routine under direct vision. The dome of the gallbladder was grasped by the assistant case manager with an Allis clamp, and lifted up superiorly. The triangle of Calot was dissected out with the [place] forceps and hook cautery until the critical view was obtained. The gallbladder and liver junction was seen. There were only 2 structures entering the gallbladder, the cystic duct cystic artery. The artery was clipped proximally and distally, and incised between with scissors. A clip was placed on the distal cystic duct. A ductotomy was made proximal to this with scissors. A 14-gauge Angiocath was passed through the right upper quadrant. The Taut cholangiogram catheter was passed through this into the cystic duct and held in place with a clip. The cholangiogram was performed with findings as noted above. The clip, catheter, and Angiocath were removed. Two clips were placed on the proximal cystic duct. It was divided distally with the use of scissors. The gallbladder was removed from the liver bed using hook cautery obtaining hemostasis along the way. Along the back wall of the gallbladder, some bile did spill out, but no stones. The gallbladder was placed in EndoCatch bag. We irrigated out thoroughly and washed out the bile. There were no signs of any further bile leakage or any bleeding. The gallbladder and bag were brought out through the umbilical port site. The abdomen was desufflated. The ports were removed. The umbilical fascia was closed with a [id number] 0 Vicryl. The skin was closed with 4-0 subcuticular Monocryl and Steri-Strips. There were no apparent complications. He was awakened in stable condition, and transferred to recovery room. cc: Kyle Courtney MD
--- NOTE | 2019-08-15 13:29 | GASTROENTEROLOGY CONSULTATION ---
DATE: 08/15/2019 REASON FOR CONSULT: Abdominal pain, nausea and vomiting. HISTORY OF PRESENT ILLNESS: Mr. Adamson is a 44-year-old man with past medical history of GERD. He has been taking Zantac for his GERD. He reports that over the last 2 to 3 weeks onwards, he has been having abdominal pain, occasional constipation and feeling of nausea and vomiting yellow emesis. He mentioned taking Metamucil last week and had a very large bowel movement which made him feel better, but he started developing abdominal bloating and pain in the right upper quadrant radiating to the back and sometimes in the left lower quadrant. He denied any fever, shortness of breath but was having chills. An abdominal MRI on 08/13 showed negative study. No abdominal abnormalities. The liver appears normal. No significant dropout. An abdominal ultrasound on 08/12/2019 showed diffuse fatty liver infiltration. Otherwise normal abdominal ultrasound. He had HIDA scan on 08/12 that showed abnormal exam. Patient is complaining of bloating sensation and feels that he has too much gas. Patient had cholecystectomy today with Dr Kyle Courtney. PAST MEDICAL HISTORY: GERD. SURGICAL HISTORY: Tooth extraction. SOCIAL HISTORY: He is , has 1 kid. He is self employed. He has been smoking cigarettes for the last 20 years. Marijuana once or twice a week for the last 20 years. He has denied any alcohol. ALLERGY: He is allergic to penicillin. HOME MEDICATIONS: Pepcid 20 mg twice a day, Protonix 40 mg daily. FAMILY HISTORY: Dad had MS and heart attack. Mom had gallbladder problems. REVIEW OF SYSTEMS: As per HPI. Otherwise, 12 point review of systems is negative. PHYSICAL EXAMINATION: Vital Signs: Temperature 97.4 degrees, pulse 65, respirations 18, blood pressure 140/101, oxygen saturation is 100% on room air.General: He is alert, oriented x3, and in no acute distress. HEENT: Pale conjunctivae. No icterus. PERRL. Neck: Supple. Lungs: Clear to auscultation in the anterior schumacher. Cardiovascular: Regular rate and rhythm. Abdomen: Soft. Tender in the right upper quadrant. Active bowel sounds heard in all 4 quadrants. No rebound tenderness noted. Extremities: No clubbing, no cyanosis or edema. Pedal pulses 2+ present bilaterally. Neurological: Alert, oriented x3. LAB: WBC 7.61, RBCs 5.35, hemoglobin 15.6, hematocrit is 46.2, platelet count is 187,000. Sodium 139, potassium 3.9, chloride 100, carbon dioxide 26, anion gap 13, BUN 12, creatinine 1.0, glucose 95, calcium 8.8, magnesium 2.0, total bilirubin 0.46, AST 16, ALT is 18, alkaline phosphatase is 93, albumin is 4.6. Stool for occult blood was negative. Toxicology: Presumptive positive for cannabinoids. IMPRESSION/PLAN: Abdominal pain Constipation Nausea/Vomiting GERD Dark stools Fatty liver S/P Laparoscopic Cholecystectomy with operative cholangiogram Tobacco abuse Marijuana/Drug abuse PLAN: The patient having laparoscopic cholecystectomy. He is currently on Protonix 40 mg IV twice a day for GERD, Carafate, Zofran as needed and miralax for his bowel regimen. His WBC is 7.61, which has been trending downward. H & H is 15.6 and 46., he is hemodynamically stable. We have asked him to followup as an outpatient at our clinic after he is discharged and plan to do an outpatient EGD/Colonoscopy. Discussed the risk of smoking and marijuana consumption, advised cessation of these products, patient reluctantly agreed to the instructions. We will continue to monitor him and follow the plan of care per PCP and the surgeon.This plan was discussed with Dr. Scruggs. Thank you for your consult and please call us for any further questions or concerns. Dictated by JANICE Correa for Murphy Scruggs MD cc: Murphy Scruggs MD I have seen and examined the patient myself and I agree with the above plan of care. I have discussed the above with the patient and family at bedside and all questions were answered. Please call us with any further questions. [facility]
[2019-08-15 15:51] VITALS: BP 127/86
[2019-08-15] MEDS ORDERED: LEVAQUIN 500 MG/D5W 500 MG/100 ML IVPB IV ONE (16:00)
--- NOTE | 2019-08-15 16:44 | DISCHARGE SUMMARY ---
ADMISSION DATE: 08/12/2019 DISCHARGE DATE: 08/15/2019 HISTORY: Mr. Bradly Adamson has no primary care physician. Presented with abdominal pain, nausea, and vomiting. He is a 43-year-old male with a medical history of gastroesophageal reflux disease, takes Zantac at home. Reports that over the last 2 and 1/2 weeks he has had a black tarry stools. Otherwise, he has had issues with constipation, becoming very nauseated, vomiting, yellow emesis. States that he took some Metamucil last week and had very normal large bowel movement, felt much better, but then started developing bloating again. Originally pain was left lower quadrant and then radiated to the right and the right upper quadrant. During evaluation, right upper quadrant abdominal pain was initiated with palpation. Imaging was reviewed. CT and ultrasound showed contracted gallbladder. Also had fatty liver. Otherwise no acute findings. He was admitted to the hospital. PAST MEDICAL HISTORY: 1. Once again, gastroesophageal reflux disease. 2. Teeth extractions in the past. ADMISSION DIAGNOSES: 1. abdominal pain. 2. Constipation. 3. Vomiting and nausea. HOSPITAL COURSE: Workup revealed gallbladder dysfunction. The CT and ultrasound did not show anything specific, but the gallbladder was contracted. He was put on some Carafate and proton pump inhibitor. General surgery was asked to see. Had a HIDA scan done, abnormal exam with poor emptying from the gallbladder, no appreciable emptying after [address] Kyle Courtney performed surgery and the gallbladder was somewhat distended. No stones were appreciated, but did a laparoscopic cholecystectomy. GI, JANICE Correa who works with GI, Dr. Scruggs, did evaluate. The patient felt much better. From a surgery standpoint he could go home and he wanted to go home, so we will discharge him home. DISCHARGE MEDICATIONS: We will give him a few hydrocodone and I did give him some nicotine patches, if he would like them. Keep his home medicines, Pepcid 20 mg twice a day. I think he has some [place] 10 at home and Protonix 40 mg p.o. daily. FOLLOW UP: He is to follow up with Dr. Courtney in a week or two. cc: Jose Addison MD
[2019-08-15] MEDS ORDERED: CARAFATE LIQUID PO ONE (16:45)
== END 2019-08-15 17:01 | disposition home or self-care (01) | DRG 419 ==
LOC: P.ED 22:50 → SUATTDRO 08-12 03:18 → P.EDIPHOLD 08-12 03:18 → P.MEDSURG 08-12 08:36 → 4N 08-14 18:33
PROVIDERS: ATTEND Emergency Medicine